=== PATIENT | female | born 1985 | race Two or more races ===

== ENCOUNTER 2023-01-27 07:05 | Emergency (ER) | payer OTHER ==
[~2023-01-27] VITALS: Ht 162.6 cm; Wt 58.8 kg
[2023-01-27 07:22] VITALS: BP 117/51; PULSE 69; RESP 17; TEMP 97.8; O2SAT 100
[2023-01-27] MEDS ORDERED: IBU600T PO (08:57)
== END 2023-01-27 10:14 | disposition home or self-care (01) ==
LOC: ER 07:05
DX: S93.504A Unspecified sprain of right lesser toe(s), initial encounter (principal); W22.8XXA Striking against or struck by other objects, initial encounter; Y93.89 Activity, other specified; Y92.89 Other specified places as the place of occurrence of the external cause; Y99.8 Other external cause status
CPT/HCPCS: 73630

== ENCOUNTER 2024-08-29 03:47 | Emergency (ER) | payer MEDICAID, OTHER ==
[~2024-08-29] VITALS: Ht 162.6 cm; Wt 55.5 kg
[~2024-08-29 03:47] MED LIST: IBU600T PO
[2024-08-29 04:27] VITALS: BP 121/61; PULSE 104; RESP 15; O2SAT 98
[2024-08-29] MEDS: ONDANSETRON ODT 4 MG TAB PO ONE (04:27)
[2024-08-29] MEDS: ACETAMINOPHEN/CODEINE#3 (300/30mg) TAB PO ONE (04:27)
--- NOTE | 2024-08-29 04:30 | ED.PDOC ---
History of Present Illness HPI Comments 39 YEAR OLD FEMALE PRESENTS TO ER WITH COMPLAINTS OF FLU-LIKE SYMPTOMS X 3 DAYS. PATIENT REPORTS SHE HAS BEEN EXPERIENCING INTERMITTENT FEVER, BODY ACHES, CHILLS AND GENERALIZED HEADACHE X 3 DAYS. NOTES SHE WAS SEEN AND EVALUATED FOR HER SYMPTOMS AT URGENT CARE YESTERDAY, DIAGNOSED WITH A UTI AT THAT TIME AND DISCHARGED HOME WITH IBUPROFEN AND CIPROFLOXACIN THAT SHE HAS TAKEN X 1 DAY, "WITHOUT RELIEF". SHE REPORTS 10/10 GENERALIZED HEADACHE PAIN, DENYING ANY OTHER CURRENT PAIN AND REPORTS DECREASE IN URINATION X 3 DAYS. PATIENT PRESENTS TO ER AMBULATORY ON ARRIVAL, ALERT AND ORIENTED X4, IN NO DISTRESS. DENIES N/V, DIZZINESS, CHEST PAIN, COUGH, ABDOMINAL/PELVIC PAIN, FURTHER CHANGES IN URINATION OR ANY FURTHER SYMPTOMS/COMPLAINTS Time Seen by MD: 03:58 Primary Care Provider: UNKNOWN Reviewed Notes: Nurses Notes, Medications, Allergies Information Source: Patient Mode of Arrival: Ambulatory Past Medical History PAST MEDICAL HISTORY: Denies Surgical History: Denies all surgeries Family History Family History: Unknown Social History Lives In: Home Constitutional: See HPI EENTM: No Symptoms Reported Respiratory: No Symptoms Reported Cardiovascular: No Symptoms Reported Gastrointestinal: No Symptoms Reported Genitourinary: No Symptoms Reported Neurological: No Symptoms Reported Musculoskeletal: No Symptoms Reported Integumentary: No Symptoms Reported Allergic/Immunocompromised: others (DENIES) Hematologic/Lymphatic: No Symptoms Reported Endocrine: No Symptoms Reported Psychiatric: No symptoms Reported Physical Exam General Appearance: No Apparent Distress HEENT: Normal ENT Inspection, PERRL/EOMI, Pharynx Normal, TMs Normal Neck: Full Range of Motion, Non-Tender, Normal Respiratory: Chest Non-Tender, Lungs Clear, No Accessory Muscle Use, No Respiratory Distress, Normal Breath Sounds Cardiovascular: No Murmur, No Gallop, Regular Rate/Rhythm Breast Exam: Deferred Gastrointestinal: Non Tender, No Pulsatile Mass, Soft Genitalia: Deferred Pelvic: Deferred Rectal: Deferred Extremities: Normal capillary refill, Normal range of motion Musculoskeletal : Extremity Location: Back (No TTP to bilateral flanks or CVA tenderness noted bilaterally) Neurologic: Alert, 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 Was a procedure done?: No Sedation Sedation?: No Fever Differential Dx Differential Diagnosis: Pneumonia, Sepsis, Other (COVID-19, Influenza) X-Ray, Labs, Meds, VS Vital Signs Date Time Temp Pulse Resp B/P (MAP) Pulse Ox O2 Delivery O2 Flow Rate FiO2 08/29/24 04:27 98 Room Air* 0 21 08/29/24 04:27 Room Air 08/29/24 04:27 99.9 104 15 121/61 (81) 98 99.9 08/29/24 04:27 99.9 104 15 121/61 (81) 98 Lab Test 08/29/24 04:30 Range/Units Urine Color Light-yellow Yellow Urine Clarity Turbid H Clear Urine pH 6.0 5.0-9.0 Urine Specific [place] 1.020 1.001-1.035 Urine Protein 1+ H Negative Urine Ketones Trace Negative Urine Blood 2+ H Negative /uL Urine Nitrite Negative Negative Urine Bilirubin Negative Negative Urine Urobilinogen Normal Negative mg/dL Urine Leukocyte Esterase 3+ Negative /uL Urine RBC 18 0 - 4 /hpf Urine Microscopic WBC 132 H 0-5 /HPF Urine Squamous Epithelial Cells Mod <5 /hpf Urine Transitional Epithelial Cells Few <2 /hpf Urine Renal Epithelial Cells Few None Seen /hpf Urine Bacteria Few H None Seen /hpf Urine Mucus Few None Seen Urine Glucose Normal Normal mg/dL Influenza Type A Antigen Negative Negative Influenza Type B Antigen Negative Negative SARS-CoV-2 Antigen (Rapid) Negative NEGATIVE Current Medications Medications (Trade) Dose Ordered Sig/Karlos Route Start Time Stop Time Status Last Admin Acetaminophen/ Codeine Phosphate (Tylenol W/Cod #3 Tablet) 1 tab ONCE ONCE PO 08/29/24 04:30 08/29/24 04:31 DC 08/29/24 04:27 Ondansetron HCl (Zofran Po) 4 mg ONCE ONCE PO 08/29/24 04:30 08/29/24 04:31 DC 08/29/24 04:27 Urinalysis reviewed - leukocyte esterase 3+, urine blood 2+, urine nitrites negative Tylenol #3 1 tablet P.O. ordered Zofran 4 mg P.O. ordered Rocephin 1 g IM ordered Swab results reviewed- negative Patient had improvement in symptoms and in no distress prior to discharge Advised to continue ciprofloxacin and ibuprofen as currently prescribed Advised to drink plenty of fluids Advised to f/u with PCP in 1-2 days Patient verbalized understanding and agreeable with current plan of care Advised to return to ER immediately if symptoms worsen Time of 1ST Reevaluation: 04:30 Reevaluation 1ST: N/A Time of 2ND Reevaluation: 05:40 Reevaluation 2ND: Improved Patient Education/Counseling: Diagnosis, Treatment, Prognosis, Need For Follow Up Family Education/Counseling: No Family Present Departure 1 Departure Time of Disposition: 05:42 Impression: Primary Impression: UTI (urinary tract infection) Qualified Codes: N30.01 - Acute cystitis with hematuria Disposition: 01 HOME / SELF CARE / HOMELESS Condition: Other Discharged With: Friend Critical Care Note Critical Care Time?: No Stability Stability form required: No Heart Score Heart Score: Heart Score Response (Comments) Value History N/A 0 EKG N/A 0 Age N/A 0 Risk Factors N/A 0 Troponin N/A 0 Total 0 OLIVIA SOW Aug 29, 2024 04:30
[2024-08-29 04:59] LABS: COVID19 ANTIGEN SOFIA FIA NEGATIVE (NEGATIVE); Rapid Influenza A Negative (Negative); Rapid Influenza B Negative (Negative)
[2024-08-29 05:02] LABS: Urine Bacteria FEW /hpf (None Seen); Urine Blood 2+ /uL (Negative); Urine Clarity Turbid (Clear); Urine Color Light-Yellow (Yellow); Urine Mucus FEW (None Seen); Urine Protein, UAD 1+ (Negative); Urine Squamous Epithelial Cell MOD /hpf (<5); Urine Urobilinogen Normal (Negative); Urine WBC 132 /HPF (0-5)
[2024-08-29] MEDS: cefTRIAXone SOD 1,000 MG VL IM ONE (05:48)
[2024-08-29 06:09] VITALS: TEMP 98.6
== END 2024-08-29 06:10 | disposition home or self-care (01) ==
LOC: ER 03:47
DX: N39.0 Urinary tract infection, site not specified (principal); Z20.822 Contact with and (suspected) exposure to COVID-19
CPT/HCPCS: 36415; 81001; 87426; 87804; 96372; 99283; J0696; Q0162